=== PATIENT | male | born 1975 | race Caucasian/White ===

== ENCOUNTER 2017-10-30 15:46 | Emergency (ER) | payer OTHER ==
[~2017-10-30] VITALS: Ht 177.8 cm; Wt 93.0 kg
[~2017-10-30 15:46] MED LIST: ALBU90OI INH; Omeprazole20 M1
[2017-10-30] MEDS ORDERED: Norco 5-325 Ta1 EACH PO (17:01)
[2017-10-30] MEDS ORDERED: Crutch1 EACH MISC (17:01)
[2018-02-06] MEDS ORDERED: Norco 5-325 Ta1 EACH PO (11:18)
== END 2017-10-30 17:09 | disposition home or self-care (01) ==
LOC: ER 15:46
DX: M25.551 Pain in right hip (principal); Z79.899 Other long term (current) drug therapy; J45.909 Unspecified asthma, uncomplicated; F17.200 Nicotine dependence, unspecified, uncomplicated
CPT/HCPCS: 73502; 99283

== ENCOUNTER 2017-11-11 02:11 | Emergency (ER) | payer OTHER ==
[~2017-11-11] VITALS: Ht 177.8 cm; Wt 88.5 kg
[~2017-11-11 02:11] MED LIST changes: +Crutch1 EACH MISC; +Norco 5-325 Ta1 EACH PO
[2018-02-06] MEDS ORDERED: Norco 5-325 Ta1 EACH PO (11:18)
== END 2017-11-11 04:41 | disposition home or self-care (01) ==
LOC: ER 02:11
DX: J98.01 Acute bronchospasm (principal); B34.9 Viral infection, unspecified; F17.200 Nicotine dependence, unspecified, uncomplicated
CPT/HCPCS: 71046; 99283

== ENCOUNTER 2023-07-04 07:08 | Day surgery (SDC) | payer OTHER ==
[~2023-07-04] VITALS: Ht 175.3 cm; Wt 127.4 kg
[~2023-07-04 07:08] MED LIST changes: +Amitriptyline H10 MG PO; +Chantix1 MG PO; +FAMO20 PO; +LOSA25 PO; +OMEP20ER PO
--- NOTE | 2023-07-04 07:12 | NUR ---
07/04/23 0712 Wendy Lomas History, Chart, Medications and Allergies reviewed before start of procedure.MONITOR INTACT WITH CONTINUOUS PULSE OXIMETRY, CONTINUOUS END TITAL CO2, AND INTERMITTENT BLOOD PRESSURE.3-LEAD EKG REVIEWED WITH PHYSICIAN PRIOR TO START OF PROCEDURE.O2 VIA POM INTACT THROUGHOUT SEDATION/PROCEDURE.See Anesthesia record.
[2023-07-04] MEDS ORDERED: Chantix1 MG PO (07:26)
[2023-07-04 07:39] VITALS: BP 135/91
--- NOTE | 2023-07-04 07:54 | NUR ---
Patient confirms NPO status and agrees with scheduled surgery. Patient reports taking all of colon prep with clear green results. Patient States Post-Procedure ride home has been arranged with his , Marisa.
[2023-07-04 08:40] VITALS: BP 119/78
[2023-07-04 09:01] VITALS: BP 111/84
--- NOTE | 2023-07-04 09:25 | NUR ---
Discharge instructions reviewed with patient. Patient verbalizes understanding. Copy given to patient to take home. Patient States Post-Procedure ride home has been arranged. Discharged via wheelchair to private car for ride home.
== END 2023-07-04 09:15 | disposition home or self-care (01) ==
LOC: ORSCMMR 07:08 → ORD 08:00 → ORSCMMR 08:00
PROVIDERS: Internal Medicine Gastroenterology
PROC: 0DB78ZX Excision of Stomach, Pylorus, Via Natural or Artificial Opening Endoscopic, Diagnostic (ICD-10-PCS; principal; 2023-07-04 08:00)
PROC: 0DB98ZX Excision of Duodenum, Via Natural or Artificial Opening Endoscopic, Diagnostic (ICD-10-PCS; principal; 2023-07-04 08:00)
PROC: 0DB48ZX Excision of Esophagogastric Junction, Via Natural or Artificial Opening Endoscopic, Diagnostic (ICD-10-PCS; principal; 2023-07-04 08:00)
PROC: 0DBN8ZX Excision of Sigmoid Colon, Via Natural or Artificial Opening Endoscopic, Diagnostic (ICD-10-PCS; principal; 2023-07-04 08:00)
DX: R10.13 Epigastric pain (principal); Z12.11 Encounter for screening for malignant neoplasm of colon; K22.70 Barrett's esophagus without dysplasia; K21.9 Gastro-esophageal reflux disease without esophagitis; D12.5 Benign neoplasm of sigmoid colon; K63.5 Polyp of colon; I10 Essential (primary) hypertension; F17.210 Nicotine dependence, cigarettes, uncomplicated; J44.9 Chronic obstructive pulmonary disease, unspecified; Z99.81 Dependence on supplemental oxygen; E66.01 Morbid (severe) obesity due to excess calories; Z68.41 Body mass index [BMI] 40.0-44.9, adult; Z79.899 Other long term (current) drug therapy
CPT/HCPCS: 88305; 88342; J2704; J7120

== ENCOUNTER → 2023-12-24 | Outpatient (CLI) | payer OTHER ==
[2023-12-24 13:44] LABS: BASOPHILS ABSOLUTE AUTO 0.15 K/mm3 (0.00-0.23); BASOPHILS PERCENT AUTO 2 % (0-2); EOSINOPHILS PERCENT AUTO 3 % (0-6); Hematocrit 49.2 % (37.0-53.0); Hemoglobin 15.8 g/dL (13.5-17.5); IMMATURE GRAN ABSOLUTE AUTO 0.05 K/mm3 (0.00-0.10); IMMATURE GRAN PERCENT AUTO 1 % (0-1); LYMPHOCYTES PERCENT AUTO 19 % (21-46); MONOCYTES ABSOLUTE AUTO 1.05 K/mm3 (0.16-1.47); MONOCYTES PERCENT AUTO 12 % (4-13); Mean Corpuscular HGB 29.5 pg (26.0-34.0); Mean Corpuscular HGB Conc 32.1 g/dL (31.5-36.5); Mean Corpuscular Volume 92 fL (80-100); Mean Platelet Volume 9.1 fL (9.1-12.4); NEUTROPHILS ABSOLUTE AUTO 5.87 K/mm3 (1.96-9.15); NEUTROPHILS PERCENT AUTO 65 % (41-73); Platelet Count 275 K/mm3 (150-400); RDW Coefficient Variation 13.2 % (11.7-14.2); RDW Standard Deviation 44.8 fL (35.1-46.3); Red Blood Cell Count 5.35 M/mm3 (4.30-5.90); White Blood Cell Count 9.12 K/mm3 (4.00-11.30)
[2023-12-24 15:09] LABS: LDL/HDL RATIO 3.4; Very Low Density Lipoprot Chol 36 mg/dL (6-32)
[2023-12-24 15:10] LABS: Alanine Aminotransfer (ALT/SGP 188 U/L (12-78); Albumin, Blood 3.5 g/dL (3.4-5.0); Alk Phos 84 U/L (50-136); Anion Gap 9 mmol/L (3-11); Aspartate Aminotrans (AST/SGOT 84 U/L (12-37); Bilirubin, Total 0.3 mg/dL (0.1-1.0); Blood Urea Nitrogen 17 mg/dL (8-24); Bun/Creatinine Ratio 15.5 (12.0-20.0); CHOL/HDL RATIO 5.5; CO2, Blood 25 mmol/L (21-32); Calcium, Blood 9.8 mg/dL (8.5-10.1); Chloride, Blood 108 mmol/L (98-108); Cholesterol 182 mg/dL (50-200); Globulin, Blood 3.6 g/dL (2.2-4.0); Glomerular Filtration Rate 82 (60-); Glucose, Blood 139 mg/dL (70-99); HDL Cholesterol 33 mg/dL (>39); Low Density Lipoprotein Chol 113 mg/dL (0-110); Potassium, Blood 4.2 mmol/L (3.5-5.5); Sodium, Blood 138 mmol/L (136-145); Total Protein, Blood 7.1 g/dL (6.4-8.2); Triglycerides 180 mg/dL (30-160)
== END | disposition home or self-care (01) ==
LOC: LAB 12:18 → LAB SHORT 12:18
PROVIDERS: Nurse Practitioner Family
DX: I10 Essential (primary) hypertension (principal); E55.9 Vitamin D deficiency, unspecified; F32.9 Major depressive disorder, single episode, unspecified; F41.9 Anxiety disorder, unspecified
CPT/HCPCS: 80053; 80061; 84443; 85025

== ENCOUNTER → 2024-07-07 | Outpatient (CLI) | payer OTHER | LOC: LAB SHORT 09:20 → LAB 09:20 | DX: J84.9 Interstitial pulmonary disease, unspecified (principal) | CPT/HCPCS: 87070; 87106; 87205 ==